=== PATIENT | female | born 1995 | race Two or more races ===

== ENCOUNTER 2024-05-27 18:23 | Observation (INO) | payer OTHER ==
--- NOTE | 2024-05-27 20:55 | US ---
EXAMINATION TYPE: US OB limited DATE OF EXAM: 05/27/2024 COMPARISON: NONE CLINICAL INDICATION: Female, 28 years old with history of position and heart tones; spotting to day and pt states decreased movement EXAM PERFORMED: GESTATIONAL AGE / DATING Physician Established: (25 weeks/2 days) EDC: 09/07/24 No growth performed on today?s study per ordering physician SURVEY CERVICAL LENGTH (transabdominal: norm > 3.0cm): 4.8 cm Ultrasound evidence of cervical incompetence? No Baby A PRESENTATION: Vertex LIE: Longitudinal HEART RATE: 150 bpm RHYTHM: Normal Baby B PRESENTATION: Variable LIE: Transverse with head maternal R HEART RATE: 152 bpm RHYTHM: Normal Two live IUPs seen. Baby A is vertex. Baby B is transverse maternal R Significant fluid collections are not identified. Consider oligohydramnios. IMPRESSION: 1. Twin gestation. Baby A heart rate 150 bpm. A Baby B heart rate 152 bpm. 2. Consider Oligohydramnios
[2024-05-27] MEDS: LACTATED RINGERS 1,000 ML IV SCH (21:24)
[2024-05-27] MEDS: ACETAMINOPHEN TAB 500 MG TAB PO PRN (21:31)
[2024-05-28 07:46] VITALS: BP 136/84; PULSE 83; RESP 17; TEMP 98.4
--- NOTE | 2024-05-28 08:02 | US ---
EXAMINATION TYPE: US OB >= 14 wk twins DATE OF EXAM: 05/28/2024 COMPARISON: US yesterday CLINICAL INDICATION: Female, 28 years old with history of complete, including REBEKA and EFW; GESTATIONAL AGE / DATING Physician Established: (25 weeks/3 days) EDC: 09/07/2024 Dates by LMP: Unknown Dates by First Scan: No previous dates Dates by Current Scan for Baby A: (26 weeks/3 days) EDC: 08/31/2024 Dates by Current Scan for Baby B: (26 weeks/3 days) EDC: 08/31/2024 GENERAL TWIN SURVEY TWIN A LOCATION in regards to maternal abd: right side of maternal abdomen TWIN B LOCATION in regards to maternal abd: left side of maternal abdomen MEMBRANE SEEN: yes CERVICAL LENGTH (transabdominal; norm > 3.0cm): 4.3 cm TWIN A: SURVEY/BIOMETRY PLACENTA: Anterior PREVIA: No previa REBEKA:? 13.7 cm?Normal PRESENTATION: Vertex LIE: Longitudinal BPD: 6.5 cm 26 weeks / 2 days HC: 23.7 cm 25 weeks / 5 days AC: 22.3 cm 26 weeks / 5 days FL: 4.9 cm 26 weeks / 4 days ESTIMATED WEIGHT IN GRAMS: 944 grams ESTIMATED WEIGHT IN LBS/OZS: 2 lbs. 1 oz. WEIGHT PERCENTAGE BASED ON ESTABLISHED DATES: 84% HC/AC: 1.06 Normal FL/AC: 22% Normal HEART RATE: 129 bpm RHYTHM: Normal TWIN B: SURVEY/BIOMETRY PRESENTATION: Vertex LIE: Longitudinal BPD: 6.4 cm 25 weeks / 6 days HC: 23.6 cm 25 weeks / 5 days AC: 22.4 cm 26 weeks / 6 days FL: 5.0 cm 27 weeks / 0 days ESTIMATED WEIGHT IN GRAMS: 968 grams ESTIMATED WEIGHT IN LBS/OZS: 2 lbs. 2 oz. WEIGHT PERCENTAGE BASED ON ESTABLISHED DATES: 89% HC/AC: 1.05 Normal FL/AC: 22% Normal HEART RATE: 144 bpm RHYTHM: Normal IMPRESSION: Twin live intrauterine gestation ultrasound age 26 weeks 3 days. Additional information as described above.
== END 2024-05-28 09:00 | disposition home or self-care (01) ==
LOC: FBPOP 18:23 → 4FBP 21:11
PROVIDERS: ADMIT Obstetrics & Gynecology Obstetrics; ATTEND Obstetrics & Gynecology
DX: O30.002 Twin pregnancy, unspecified number of placenta and unspecified number of amniotic sacs, second trimester
CPT/HCPCS: 76805; 76810; 76815; 99213

== ENCOUNTER 2024-07-17 15:39 | Observation (INO) | payer OTHER ==
[2024-07-17] MEDS: BETAMET ACET-BETAMETH SOD PHOS 6 MG/ML MDV IM SCH (16:36)
[2024-07-17 16:54] LABS: Basophils % (A) 0 %; Eosinophils # (A) 0.1 k/uL (0-0.7); Eosinophils % (A) 1 %; HCT 28.8 % (34.0-46.0); HGB 9.5 gm/dL (11.4-16.0); Hypochromasia Slight; Lymphocytes # (A) 2.2 k/uL (1.0-4.8); Lymphocytes % (A) 26 %; MCH 26.1 pg (25.0-35.0); MCHC 32.8 g/dL (31.0-37.0); MCV 79.6 fL (80.0-100.0); Mean Platelet Volume 10.6; Monocytes # (A) 0.4 k/uL (0-1.0); Monocytes % (A) 4 %; Neutrophils # (A) 5.8 k/uL (1.3-7.7); Neutrophils % (A) 66 %; Platelet Count 190 k/uL (150-450); Poikilocytosis Slight; RBC 3.63 m/uL (3.80-5.40); RDW 12.9 % (11.5-15.5); WBC 8.7 k/uL (3.8-10.6)
[2024-07-17 17:18] LABS: ALT 13 U/L (4-34); AST 22 U/L (14-36); African American GFR (CKD) >90 (>60 ml/min/1.73 sqM); Blood Urea Nitrogen 6 mg/dL (7-17); LDH 180 U/L (120-246); Non-African American GFR(CKD) >90 (>60 ml/min/1.73 sqM); Uric Acid 4.2 mg/dL (3.7-7.4)
[2024-07-17 17:27] LABS: Protein/Creatinine Ratio,Urine 0.189
[2024-07-17] MEDS: ACETAMINOPHEN TAB 500 MG TAB PO PRN (17:59)
[2024-07-17] MEDS: LABETALOL 200 MG TAB PO SCH (20:39)
[2024-07-17] MEDS: diphenhydrAMINE 50 MG CAP PO STA (20:39)
[2024-07-18 07:55] VITALS: RESP 18; TEMP 97.2
[2024-07-18] MEDS: METOCLOPRAMIDE 10 MG TAB PO PRN (10:09)
[2024-07-18 16:20] VITALS: BP 135/68; PULSE 85
== END 2024-07-18 17:05 | disposition home or self-care (01) ==
LOC: INTOOBSV 15:39 → 4FBP 15:39 → UNDODISIN 07-18 17:05
PROVIDERS: ADMIT Obstetrics & Gynecology; ATTEND Obstetrics & Gynecology
DX: Z53.9 Procedure and treatment not carried out, unspecified reason (principal)
CPT/HCPCS: 82570; 84156; 82565; 83615; 84450; 84460; 84520; 84550; 85025; G0378 ×2; G0379; J0702 ×2

== ENCOUNTER 2024-07-26 15:16 | Outpatient (CLI) | payer OTHER ==
[2024-07-26 16:12] VITALS: PULSE 88; RESP 16; TEMP 98.5
[2024-07-26 16:32] LABS: Basophils % (A) 0 %; Eosinophils # (A) 0.1 k/uL (0-0.7); Eosinophils % (A) 1 %; HCT 27.2 % (34.0-46.0); HGB 8.8 gm/dL (11.4-16.0); Hypochromasia Moderate; Lymphocytes # (A) 2.3 k/uL (1.0-4.8); Lymphocytes % (A) 25 %; MCH 25.6 pg (25.0-35.0); MCHC 32.3 g/dL (31.0-37.0); MCV 79.3 fL (80.0-100.0); Mean Platelet Volume 10.2; Monocytes # (A) 0.7 k/uL (0-1.0); Monocytes % (A) 7 %; Neutrophils # (A) 5.9 k/uL (1.3-7.7); Neutrophils % (A) 64 %; Platelet Count 251 k/uL (150-450); Poikilocytosis Slight; RBC 3.44 m/uL (3.80-5.40); WBC 9.2 k/uL (3.8-10.6)
[2024-07-26 16:39] LABS: Appearance,Urine Clear (Clear); Bilirubin,Urine Negative (Negative); Blood,Urine Negative (Negative); Color,Urine Colorless; Glucose,Urine (UA) Negative (Negative); Ketones,Urine Negative (Negative); Leukocyte Esterase,Urine Negative (Negative); Nitrite,Urine Negative (Negative); PH, Urine 6.5 (5.0-8.0); Protein,Urine Negative (Negative); Specific Gravity,Urine 1.007 (1.001-1.035); Urobilinogen,Urine <2.0 mg/dL (<2.0)
[2024-07-26 16:43] LABS: ALT 12 U/L (4-34); AST 19 U/L (14-36); African American GFR (CKD) >90 (>60 ml/min/1.73 sqM); Blood Urea Nitrogen 6 mg/dL (7-17); Non-African American GFR(CKD) >90 (>60 ml/min/1.73 sqM); Uric Acid 4.1 mg/dL (3.7-7.4)
[2024-07-26 16:46] LABS: Creatinine,Urine Random 40.4 mg/dL; Protein/Creatinine Ratio,Urine 0.223
--- NOTE | 2024-07-26 18:43 | US ---
EXAMINATION TYPE: US OB BPP wo non-stress DATE OF EXAM: 07/26/2024 COMPARISON: NONE CLINICAL INDICATION: Female, 29 years old with history of Elevated BPs; Elevated blood pressure being induced 08/02/2024.Has weekly BPP in [place]. Limited due to body habitus. TECHNIQUE: Transabdominal (TA). Scoring by the plant engineering manager during real-time assessment twin Gestation. FINDINGS: Baby A: BPP PARAMETERS: PRESENTATION: Vertex LIE: Longitudinal?? HEART RATE: 136 bpm RHYTHM: Normal REBEKA: Approximately 4 cm DIAPHRAGM IMAGED: yes BPP SCORIN. Breathin (1 episode of breathing of 30 second duration in 30 minutes of scanning time) 2. Movement: 2 (at least 3 discrete body movements in 30 minutes) 3. Tone: 2 (1 episode of active flexion/extension of limb) 4. REBEKA: 0 (REBEKA index > 5cm) IMPRESSION: TOTAL SCORE: Baby A: Baby B BPP PARAMETERS: PRESENTATION: Vertex LIE: Longitudinal?? HEART RATE: 144 bpm RHYTHM: Normal REBEKA: 7.9 DIAPHRAGM IMAGED: yes 1. Breathin (1 episode of breathing of 30 second duration in 30 minutes of scanning time) 2. Movement: 2 (at least 3 discrete body movements in 30 minutes) 3. Tone: 2 (1 episode of active flexion/extension of limb) 4. REBEKA: 2 (REBEKA index > 5cm) BPP SCORIN/8 Baby B [facility], , 07/26/2024 6:41 PM
--- NOTE | 2024-07-28 12:14 | P.MSEPDOC ---
Presenting Problems - Arrival Data Date of Arrival on Unit: 07/26/24 Time of Arrival on Unit: 15:05 Mode of Transport: Stretcher - Complaint OB-Reason for Admission/Chief Complaint: Other Comment: Pt presented with writtne orders from Dr. Cross for a PIH workup, NST, BPP, and serial BPs. Medical History - Information : 2 Para: 1 Term: 0 : 1 Abortions: Spontaneous or Elective: 0 Number of Living Children: 1 - Gestational Age Gestational Age by [place] (wks/days): 34 Weeks and 4 Days - History Complications: Multiple , Prior , Prior Review of Systems - Review of Systems Constitutional: No problems Breast: No problems ENT: No problems Cardiovascular: No problems Respiratory: No problems Gastrointestinal: No problems Genitourinary: No problems Musculoskeletal: No problems Neurological: No problems Skin: No problems Vital Signs - Temperature Temperature: 98.5 F Temperature Source: Temporal Artery Scan - Pulse Right Pulse Oximetery Pulse Rate: 88 Pulse Assessment Method: Pulse Oximetry - Respirations Respiratory Rate: 16 Oxygen Delivery Method: Room Air Medical Screen Scoring - Cervical Exam Membranes: Intact - Assessment - Baby A Baseline FHR: 130 Heart Rate - NICHD Category: Category I (Normal) NST: Reactive - Assessment - Baby B Baseline FHR: 130 Heart Rate - NICHD Category: Category I (Normal) NST: Reactive Physician Notification - Physician Notified Physician Notified Date: 07/26/24 Physician Notified Time: 16:56 Physician: Dr. Monroe New Order Received: Yes (D/C home) - Notification Comment Comment: Dr. Monroe notified of pt's arrival to triage with written orders. RN reported on maternal and status including VS, STALEY, labwork results, NST, and BPP. Orders to D/C pt with routine follow-up with Dr. Cross as scheduled, orders read back and confirmed. Maternal Triage Index - Maternal Triage Index Presenting for scheduled procedure w/no complaint: No - Stat/Priority 1 Stat Priority 1: No - Urgent/Priority 2 Urgent Priority 2: No - Prompt/Priority 3 Prompt Priority 3: No - Non-Urgent/Priority 4 Non-Urgent Priority 4: No - Scheduled/Requesting Priority 5 Scheduled/Requesting Priority 5: Yes Criteria Met for Priority 5: Pt is a with [place] 09/02/24 here at 34.4 weeks of gestation with twins, with written orders for a PIH workup, an NST, a BPP, and serial BPs. Pt reports that she has elevated BPs throughout the and is on medication. Pt also reports that she had 1st and 2nd trimester bleeding, but denies VB at this time. Pt also denies LOF. Pt reports +FM, and intermittent cramping x3 days. Pt reports a STALEY since this AM, unrelieved by Tylenol. Disposition - Disposition OB Disposition: Discharge to home Discharge Date: 07/26/24 Discharge Time: 17:05 I agree with the RN Medical Screening Exam: Yes Case reviewed; plan agreed upon as documented in EMR&OBIX.: Yes Diagnosis: RELATED CONDITIONS, UNSPECIFIED, THIRD TRIMESTER
== END 2024-07-26 17:05 | disposition home or self-care (01) ==
LOC: FBPOP 15:16
PROVIDERS: ATTEND Obstetrics & Gynecology Obstetrics
DX: O13.3 Gestational [pregnancy-induced] hypertension without significant proteinuria, third trimester (principal); Z3A.34 34 weeks gestation of pregnancy; Z88.1 Allergy status to other antibiotic agents; Z88.5 Allergy status to narcotic agent
CPT/HCPCS: 36415; 59025; 76819; 81003; 82565; 82570; 84156; 84450; 84460; 84520; 84550; 85025

== ENCOUNTER 2024-08-02 05:58 | Inpatient (IN) | payer OTHER ==
[2024-08-02] MEDS ORDERED: CARBOPROST TROMETHAMINE 250 MCG/ML 1 ML AMP IM PRN (06:13)
[2024-08-02] MEDS ORDERED: TRANEXAMIC 1,000 MG/100ML-NACL 1,000 MG in EMPTY BAG 1 BAG IV PRN (06:13)
[2024-08-02] MEDS ORDERED: miSOPROStoL 200 MCG TAB PO PRN (06:13)
[2024-08-02] MEDS ORDERED: METHYLERGONOVINE 0.2 MG/ML 1 ML AMP IM PRN (06:13)
[2024-08-02] MEDS ORDERED: OXYTOCIN 10 UNIT/ML 1 ML VIAL IM PRN (06:13)
[2024-08-02] MEDS: LABETALOL 100 MG TAB PO STA (06:55)
[2024-08-02 07:00] LABS: Basophils % (A) 0 %; Eosinophils # (A) 0.1 k/uL (0-0.7); Eosinophils % (A) 1 %; HCT 28.8 % (34.0-46.0); HGB 9.1 gm/dL (11.4-16.0); Hypochromasia Moderate; Lymphocytes # (A) 2.2 k/uL (1.0-4.8); Lymphocytes % (A) 22 %; MCH 24.6 pg (25.0-35.0); MCHC 31.6 g/dL (31.0-37.0); Mean Platelet Volume 10.6; Monocytes # (A) 0.7 k/uL (0-1.0); Monocytes % (A) 6 %; Neutrophils # (A) 6.9 k/uL (1.3-7.7); Neutrophils % (A) 68 %; Platelet Count 195 k/uL (150-450); Poikilocytosis Slight; RBC 3.69 m/uL (3.80-5.40); RDW 13.4 % (11.5-15.5); WBC 10.1 k/uL (3.8-10.6)
[2024-08-02 07:11] LABS: INR 0.9 (<1.2); Partial Thromboplastin Time 22.3 sec (22.0-30.0); Prothrombin Time 9.8 sec (10.0-12.5)
[2024-08-02] MEDS: CITRIC ACID-SODIUM CITRATE 15 ML CUP PO ONE (07:30)
[2024-08-02] MEDS: ceFAZolin 3 GM in SODIUM CHLORIDE 0.9% 100 ML IVPB ONE (07:30)
[2024-08-02] MEDS ORDERED: KETOROLAC 15 MG/ML 1 ML VIAL ONE (08:00)
[2024-08-02] MEDS ORDERED: PHENYLEPHRINE-0.9% NACL SYG 1,000 MCG/10 ML SYRINGE ONE (08:00)
[2024-08-02] MEDS ORDERED: ONDANSETRON 4 MG/2 ML VIAL ONE (08:00)
[2024-08-02] MEDS ORDERED: NALBUPHINE 10 MG/ML (10 ML MDV) ONE (08:00)
[2024-08-02] MEDS ORDERED: MORPHINE SULFATE (PF) 0.3 MG/0.3 ML SYR ONE (08:00)
--- NOTE | 2024-08-02 08:00 | P.HPOB ---
History of Present Illness H&P Date: 08/02/24 Chief Complaint: twin gestation, gestational hypertension 29 year old at 35 weeks twin gestation with uncontrolled gestational hypertension presents for repeat low transverse . Review of Systems All systems: negative Constitutional: Denies chills, Denies fever Eyes: denies blurred vision, denies pain Ears, nose, mouth and throat: Denies headache, Denies sore throat Cardiovascular: Denies chest pain, Denies shortness of breath Respiratory: Denies cough Gastrointestinal: Denies abdominal pain, Denies diarrhea, Denies nausea, Denies vomiting Genitourinary: Denies dysuria, Denies hematuria Musculoskeletal: Denies myalgias Integumentary: Denies pruritus, Denies rash Neurological: Denies numbness, Denies weakness Psychiatric: Denies anxiety, Denies depression Endocrine: Denies fatigue, Denies weight change Past Medical History Past Medical History: No Reported History Additional Past Medical History / Comment(s): gestational hypertension History of Any Multi-Drug Resistant Organisms: None Reported Past Surgical History: Bariatric Surgery, Section, Cholecystectomy Additional Past Surgical History / Comment(s): Gastric Sleeve 2021 Past Anesthesia/Blood Transfusion Reactions: Motion Sickness, Postoperative Nausea & Vomiting (PONV) Past Psychological History: Anxiety, Depression Smoking Status: Never smoker Past Alcohol Use History: None Reported Past Drug Use History: None Reported - Past Family History Father Family Medical History: Hyperlipidemia, Hypertension, Rheumatoid Arthritis (RA) Mother Family Medical History: Deep Vein Thrombosis (DVT) Additional Family Medical History / Comment(s): DVT during Medications and Allergies Home Medications Medication Instructions Recorded Confirmed Type Labetalol [Trandate] 100 mg PO BID 07/17/24 08/02/24 History Pantoprazole Sodium 40 mg PO DAILY 08/01/24 08/02/24 History Allergies Allergy/AdvReac Type Severity Reaction Status Date / Time acetaminophen [From [place]] AdvReac Nausea & Verified 08/01/24 10:03 Vomiting & Diarrhea hydrocodone [From [place]] AdvReac Nausea & Verified 08/01/24 10:03 Vomiting & Diarrhea Exam Osteopathic Statement: *. No significant issues noted on an osteopathic structural exam other than those noted in the History and Physical/Consult. Vital Signs Temp Pulse Resp BP Pulse Ox 08/02/24 06:11 96.4 F L 91 16 158/96 99 Intake and Output 08/01/24 08/02/24 08/02/24 22:59 06:59 14:59 Other: Weight 122.47 kg Heart: Regular rate and rhythm Lungs: Clear to auscultation bilaterally Abdomen: Soft, nontender Extremities: Negative Homans sign Results Result Diagrams: 08/02/24 06:31 Abnormal Lab Results - Last 24 Hours (Table) 08/02/24 08/02/24 Range/Units 06:30 06:31 RBC 3.69 L (3.80-5.40) m/uL Hgb 9.1 L (11.4-16.0) gm/dL Hct 28.8 L (34.0-46.0) % MCV 78.0 L (80.0-100.0) fL MCH 24.6 L (25.0-35.0) pg PT 9.8 L (10.0-12.5) sec Fibrinogen 556 H (200-500) mg/dL Assessment and Plan (1) Twin gestation in third trimester Current Visit: Yes Status: Acute Code(s): O30.003 - TWIN PREG, UNSP NUM PLCNTA & AMNIO SACS, THIRD TRIMESTER SNOMED Code(s): 30487299 (2) Gestational hypertension Current Visit: Yes Status: Acute Code(s): O13.9 - GESTATIONAL HTN W/O SIGNIFICANT PROTEINURIA, UNSP TRIMESTER SNOMED Code(s): 93640164 Plan: 1. repeat low transverse .
[2024-08-02] MEDS ORDERED: ONDANSETRON 4 MG/2 ML VIAL IVP PRN (08:57)
[2024-08-02] MEDS ORDERED: diphenhydrAMINE 25 MG CAP PO PRN (08:57)
[2024-08-02] MEDS ORDERED: NALOXONE 0.4 MG/ML 1 ML VIAL IV PRN (08:57)
[2024-08-02] MEDS ORDERED: ZOLPIDEM 5 MG TAB PO PRN (08:57)
[2024-08-02] MEDS ORDERED: LANOLIN CREAM 1 GM TUBE TOPICAL PRN (08:57)
[2024-08-02] MEDS ORDERED: METOCLOPRAMIDE 5 MG/ML 2 ML VIAL IVP PRN (08:57)
[2024-08-02] MEDS ORDERED: diphenhydrAMINE 50 MG CAP PO PRN (08:57)
--- NOTE | 2024-08-02 08:57 | P.OP ---
Date of Procedure: 08/02/24 Preoperative Diagnosis: 1. twin gestation 2. 35 weeks 3. gestational hypertension uncontrolled. Postoperative Diagnosis: same Procedure(s) Performed: repeat low transverse c-sectin Anesthesia: spinal Surgeon: Demi Cross Beam Dyer Recessed Vat #1: Odalys Saldana Estimated Blood Loss (ml): 800 IV fluids (ml): 1,000 Urine output (ml): 300 Pathology: none sent Condition: stable Operative Findings: 2 viable infants A: male 8,9 weight 6# B: female 7,9 weight 4#15oz. normal uterus, tubes and ovaries Description of Procedure: Patient was taken to the operating room where spinal anesthesia was found be adequate. She was prepped and draped in normal sterile fashion in dorsal supine position with a leftward tilt. Pfannenstiel skin incision was made the scalpel and carried through to the underlying layer of fascia with the scalpel. Fascia was incised in midline and carried bilaterally with the Taylor scissors. The superior aspect of the fascial incision was grasped with [place] clamps elevated and the underlying rectus muscles dissected off with the Taylor's. Attention was then turned to inferior aspect of same incision which in a similar fashion was grasped tented up and the underlying rectus muscles dissected off with the Taylor's. The rectus muscles were the midline and the peritoneum was identified tented up and entered sharply with the scalpel. The incision was extended superiorly and inferiorly with good visualization of the bladder. The bladder blade was inserted and the vesicouterine peritoneum was incised the [place]zen[place]ums then carried bilaterally and bladder flap created digitally. A low transverse incision was then made on the uterus with the scalpel. This was carried bilaterally and digital manner. Infant's head delivered atraumatically, nose and mouth bulb suctioned, cord clamped and cut, handed off to waiting nurses. Apgars 8,9, weight 6 lbs. I reached to find the second infant that verted to head down, amniotomy performed and infants head delivered atroamatically, nose and mouth bulb suctioned, handed to waiting nurses 7,9, weight 4#15oz. Placenta delivered manually, intact with 2 three- vessel cord. The uterus is exteriorized and cleared of all clots and debris. The uterine incision was closed with 0 Vicryl in a running locked fashion. Second layer of the same sutures used in imbricating fashion to obtain excellent hemostasis. Both ovaries and tubes appeared normal. The uterus was placed back into the abdomen. The muscles were reapproximated using 2-0 Vicryl in interrupted fashion. The fascia was reapproximated using 0 Vicryl in a running fashion. The subcutaneous tissues closed with 3-0 Vicryl running fashion. The skin was closed pardeep. Patient tolerated the procedure well, sponge and instrument counts were correct times 2 and she was taken to the recovery room in stable condition.
[2024-08-02] MEDS ORDERED: OXYTOCIN 30 UNITS/500 ML NS 30 UNIT in SALINE 1 500ML.BAG IV SCH (09:00)
[2024-08-02] MEDS: ACETAMINOPHEN TAB 500 MG TAB PO SCH (11:01)
[2024-08-02] MEDS: diphenhydrAMINE 50 MG/ML 1 ML VIAL IVP PRN ×2 (12:38→23:22)
[2024-08-02] MEDS: LACTATED RINGERS 1,000 ML IV SCH (12:40)
[2024-08-02] MEDS: KETOROLAC 15 MG/ML 1 ML VIAL IVP SCH (16:46)
[2024-08-02] MEDS: ceFAZolin 3 GM in SODIUM CHLORIDE 0.9% 100 ML IVPB SCH (16:49)
[2024-08-02] MEDS: SENNOSIDES-DOCUSATE SODIUM 1 EACH TAB PO SCH (20:47)
[2024-08-02] MEDS: SIMETHICONE 80 MG CHEWABLE PO PRN (23:33)
[2024-08-03 08:34] LABS: Basophils % (A) 0 %; Eosinophils # (A) 0.1 k/uL (0-0.7); Eosinophils % (A) 1 %; HCT 22.4 % (34.0-46.0); Hypochromasia Moderate; Lymphocytes # (A) 1.9 k/uL (1.0-4.8); Lymphocytes % (A) 21 %; MCH 25.2 pg (25.0-35.0); MCV 78.7 fL (80.0-100.0); Mean Platelet Volume 10.3; Monocytes # (A) 0.7 k/uL (0-1.0); Monocytes % (A) 7 %; Neutrophils # (A) 6.3 k/uL (1.3-7.7); Neutrophils % (A) 69 %; Platelet Count 174 k/uL (150-450); Poikilocytosis Slight; RBC 2.85 m/uL (3.80-5.40); RDW 13.5 % (11.5-15.5); WBC 9.2 k/uL (3.8-10.6)
[2024-08-03 08:36] LABS: HGB 7.2 gm/dL (11.4-16.0)
--- NOTE | 2024-08-03 08:50 | P.PNOBGPC ---
Subjective - Subjective Principal diagnosis: S/P RLTCS POD #1 Interval history: Patient seen and examined. Denies nausea, vomiting, chest pain, shortness of breath or calf pain. Patient reports: Reports appetite normal, Reports voiding normally, Reports pain well controlled, Reports ambulating normally Objective - Vital Signs Latest vital signs: Vital Signs Temp Pulse Resp BP BP BP Pulse Ox 08/03/24 08:15 98.0 F 81 16 133/83 98 08/03/24 04:00 97.7 F 72 16 142/77 99 08/02/24 23:36 97.8 F 81 16 128/75 98 08/02/24 20:00 97.3 F L 77 16 130/84 97 08/02/24 15:33 97.9 F 83 18 113/72 98 08/02/24 12:40 84 131/80 08/02/24 10:56 98.1 F 78 18 130/69 97 08/02/24 10:41 81 16 128/64 97 08/02/24 10:26 82 18 140/66 98 08/02/24 10:11 84 16 157/90 99 08/02/24 09:56 75 16 148/86 99 08/02/24 09:41 76 18 143/85 98 08/02/24 09:26 75 16 141/85 98 08/02/24 09:11 77 18 134/80 97 08/02/24 08:56 96.9 F L 77 18 120/70 99 Intake and Output 08/02/24 08/03/24 08/03/24 22:59 06:59 14:59 Output Total 1150 900 Balance -1150 -900 Output: Urine 1150 900 Uretheral ([place]orm[place]) 150 - Exam Lungs: bilateral: normal Chest: Normal S1, Normal S2 Extremities: Present: normal Abdomen: Present: normal appearance, soft. Absent: distention, tenderness Incision: Present: normal, dry, intact Uterus: Present: normal, firm - Labs Labs: Abnormal Lab Results - Last 24 Hours (Table) 08/03/24 Range/Units 07:26 RBC 2.85 L (3.80-5.40) m/uL Hgb 7.2 L D (11.4-16.0) gm/dL Hct 22.4 L (34.0-46.0) % MCV 78.7 L (80.0-100.0) fL Assessment and Plan (1) Twin gestation in third trimester Current Visit: Yes Status: Resolved Code(s): O30.003 - TWIN PREG, UNSP NUM PLCNTA & AMNIO SACS, THIRD TRIMESTER SNOMED Code(s): 68782693 (2) Gestational hypertension Current Visit: Yes Status: Resolved Code(s): O13.9 - GESTATIONAL HTN W/O SIGNIFICANT PROTEINURIA, UNSP TRIMESTER SNOMED Code(s): 86060666 (3) Status post repeat low transverse section Current Visit: Yes Status: Acute Code(s): Z98.891 - HISTORY OF UTERINE SCAR FROM PREVIOUS SURGERY SNOMED Code(s): 882230065 Plan: 1. Increase ambulation 2. Regular diet
--- NOTE | 2024-08-03 09:57 | P.PN ---
Progress Note - Text Progress Note Date: 08/03/24 Patient was seen and examined side. Received intrathecal morphine 300 mcg , and for postop pain control as per surgeon request. Today postop day 1 -s/p C- section. Today complaining her pain levels 3-4 out of 10 in severity. Able to ambulate without any difficulty. Denied any weakness. Mild itching. Physical exam: Vitals : stable vitals, afebrile Assessment and plan: S/p postop day 1 - Continue oral pain medications as needed as per primary care. Please contact anesthesia as needed.
[2024-08-03] MEDS: IBUPROFEN 800 MG TAB PO SCH (16:57)
[2024-08-04] MEDS: polyethylene glycoL 3350 17 GM POWD.PACK PO SCH (02:27)
--- NOTE | 2024-08-04 09:11 | P.PNOBGPC ---
Subjective - Subjective Principal diagnosis: S/P RLTCS POD #2 Interval history: Patient seen and examined. She did have some elevated blood pressures but was also concerned about not having a bowel movement. She hasn't had a bowel movement and we will recheck her blood pressures. If they're still elevated will restart her labetalol 100 mg twice a day. Patient reports: Reports appetite normal, Reports voiding normally, Reports pain well controlled, Reports ambulating normally Objective - Vital Signs Latest vital signs: Vital Signs Temp Pulse Resp BP BP 08/04/24 07:54 98.6 F 93 16 157/103 08/04/24 00:00 98.7 F 90 16 131/84 08/03/24 16:56 97.9 F 88 16 118/80 - Exam Lungs: bilateral: normal Chest: Normal S1, Normal S2 Extremities: Present: normal Abdomen: Present: normal appearance, soft. Absent: distention, tenderness Incision: Present: normal, dry, intact Uterus: Present: normal, firm Assessment and Plan (1) Twin gestation in third trimester Current Visit: Yes Status: Resolved Code(s): O30.003 - TWIN PREG, UNSP NUM PLCNTA & AMNIO SACS, THIRD TRIMESTER SNOMED Code(s): 58046960 (2) Gestational hypertension Current Visit: Yes Status: Resolved Code(s): O13.9 - GESTATIONAL HTN W/O SIGNIFICANT PROTEINURIA, UNSP TRIMESTER SNOMED Code(s): 88188178 (3) Status post repeat low transverse section Current Visit: Yes Status: Acute Code(s): Z98.891 - HISTORY OF UTERINE SCAR FROM PREVIOUS SURGERY SNOMED Code(s): 249834800 Plan: 1. monitor BP closely 2. increase ambulation
[2024-08-04 16:13] VITALS: RESP 16
[2024-08-06 01:14] VITALS: PULSE 90
--- NOTE | 2024-08-06 08:07 | P.DS ---
Providers Date of admission: 08/02/24 05:58 Expected date of discharge: 08/06/24 Attending physician: Demi Cross Primary care physician: Stated None - Discharge Diagnosis(es) (1) Twin gestation in third trimester Current Visit: Yes Status: Resolved (2) Gestational hypertension Current Visit: Yes Status: Resolved (3) Status post repeat low transverse section Current Visit: Yes Status: Acute Hospital Course: Patient presented for repeat low transverse due to twin gestation. She underwent this procedure without complication. Postoperative course was uneventful. She denies nausea, vomiting, chest pain, shortness of breath or calf pain. She'll be discharged home day #3 in stable condition to follow-up with me in 2 weeks. Plan - Discharge Summary Discharge Rx Participant: No New Discharge Prescriptions: Discontinued Labetalol [Trandate] 100 mg PO BID No Action Pantoprazole Sodium 40 mg PO DAILY Discharge Medication List Pantoprazole Sodium 40 mg PO DAILY 08/01/24 [History] Follow up Appointment(s)/Referral(s): Demi Cross DO [Doctor of Osteopathic Medicine] - 08/13/24 2:00 pm (Post Appointment 09-10-2024 at 2:00) Discharge Disposition: HOME SELF-CARE
[2024-08-06 08:33] VITALS: BP 148/90; TEMP 98.8
== END 2024-08-06 12:05 | disposition home or self-care (01) | DRG 540 ==
LOC: 4FBP 05:58
PROVIDERS: ADMIT Obstetrics & Gynecology; ATTEND Obstetrics & Gynecology
PROC: 10907ZC Drainage of Amniotic Fluid, Therapeutic from Products of Conception, Via Natural or Artificial Opening (ICD-10-PCS; 2024-08-02)
PROC: 10D00Z1 Extraction of Products of Conception, Low, Open Approach (ICD-10-PCS; principal; 2024-08-02 08:00)
DX: O13.4 Gestational [pregnancy-induced] hypertension without significant proteinuria, complicating childbirth (principal); Z37.2 Twins, both liveborn; O30.003 Twin pregnancy, unspecified number of placenta and unspecified number of amniotic sacs, third trimester; Z3A.35 35 weeks gestation of pregnancy; O99.844 Bariatric surgery status complicating childbirth; O12.14 Gestational proteinuria, complicating childbirth; O34.211 Maternal care for low transverse scar from previous cesarean delivery; Z82.49 Family history of ischemic heart disease and other diseases of the circulatory system
CPT/HCPCS: 85025; 85384; 85610; 85730; 86850; 86900; 86901; 88307